=== PATIENT | female | born 1935 | race Caucasian/White ===

== ENCOUNTER 2017-05-21 08:50 | Day surgery (SDC) | payer MEDICARE, BC ==
[~2017-05-21 08:50] MED LIST: Lactated Ringers 1,000 ML IV SCH; cefOXitin 2 GM in Premix Bag 1 BAG IV ONE
--- NOTE | 2017-05-21 09:39 | PCM.PREANE ---
Preanesthetic Assessment - Anesthesia/Transfusion/Family Hx Anesthesia History: Prior Anesthesia Without Reaction Family History of Anesthesia Reaction: No Transfusion History: Prior Transfusion Without Reaction Intubation History: Unknown - Review of Systems General: No Symptoms Pulmonary: No Symptoms Cardiovascular: No Symptoms Gastrointestinal: Abdominal Pain, Diarrhea Neurological: No Symptoms Other: Reports: None - Physical Assessment O2 Sat by Pulse Oximetry: 100 Respiratory Rate: 18 Vital Signs: Last Vital Signs Temp 2.5 C L 05/21/17 09:27 Pulse 62 05/21/17 09:27 Resp 18 05/21/17 09:27 BP 123/75 05/21/17 09:27 Pulse Ox 100 05/21/17 09:27 Height: 1.63 m Weight: 69.4 kg ASA Class: 2 Mental Status: Alert & Oriented x3 Airway Class: Mallampati = 2 Dentition: Reports: Dentures (upper and lower) Thyro-Mental Finger Breadths: 3 Mouth Opening Finger Breadths: 3 ROM/Head Extension: Limited/Partial Lungs: Clear to Auscultation, Normal Respiratory Effort Cardiovascular: Regular Rate, Regular Rhythm - Allergies Allergies/Adverse Reactions: Allergies Allergy/AdvReac Type Severity Reaction Status Date / Time Penicillins Allergy Facial Verified 05/16/17 08:52 Swelling Spwzszh-Rid-Hde Reductase Allergy bloating & Verified 05/16/17 08:52 Inhibitor constipation Sulfa (Sulfonamide Allergy facial Verified 05/16/17 08:36 Antibiotics) numbness - Blood Blood Available: No - Anesthesia Plan Pre-Op Medication Ordered: None - Acknowledgements Anesthesia Type Planned: MAC Pt an Appropriate Candidate for the Planned Anesthesia: Yes Alternatives and Risks of Anesthesia Discussed w Pt/Guardian: Yes Pt/Guardian Understands and Agrees with Anesthesia Plan: Yes PreAnesthesia Questionnaire HEENT History: Reports: Glaucoma, Other (See Below) Other HEENT History: wears reading glasses, top and bottom dentures Gastrointestinal History: Reports: GERD RADIOLOGIST DIAGNOSTIC History: Reports: Musculoskeletal History: Reports: Arthritis Neurological History: Reports: TIA Other Neuro History: "TIA 2 yrs ago in october" Hematologic History: Reports: Blood Transfusion(s) Other Hematologic History: transfusion post vaginal delivery Oncologic (Cancer) History: Reports: Basal Cell Carcinoma - Past Surgical History Head Surgeries/Procedures: Reports: None HEENT Surgical History: Reports: Cataract Surgery GI Surgical History: Reports: Appendectomy, Colonoscopy Female Surgical History: Reports: Hysterectomy, Oophorectomy Musculoskeletal Surgical History: Reports: Knee Replacement (left) Dermatological Surgical History: Reports: Skin Biopsy - SUBSTANCE USE Smoking Status *Q: Former Smoker (quit in 80's) Recreational Drug Use History: No - HOME MEDS Home Medications: Home Meds Aspirin [Dobbins Aspirin] 81 mg PO DAILY 05/16/17 [History] Calcium Carbonate/Simethicone [[place] Heartburn+Gas] 1 tab.chew CHEW ASDIRECTED PRN 05/16/17 [History] Cinnamon Bark [Cinnamon] 1 tab PO BID 05/16/17 [History] Cranberry Conc/Ascorbic Acid [Cranberry Concentrate Softgel] 1 tab PO BID [History] Ibuprofen 2 tab PO ASDIRECTED PRN 05/16/17 [History] Lutein/Minerals/Vit A,C & E [Ocuvite] 1 tab PO DAILY 05/16/17 [History] Multivitamin [Multivitamins] 1 tab PO DAILY 05/16/17 [History] Red Yeast Rice 1 tab PO BID 05/16/17 [History] - CURRENT (IN HOUSE) MEDS Current Meds: Current Medications Lactated Ringer's (Ringers, Lactated) 1,000 mls @ 125 mls/hr IV ASDIRECTED ERICKSON Last Admin: 05/21/17 09:24 Dose: 125 mls/hr Discontinued Medications Cefoxitin Sodium 2 gm/ Premix 50 mls @ 100 mls/hr IV ONETIME ONE Stop: 05/21/17 07:59
[2017-05-21] MEDS ORDERED: Propofol 200 MG/20 ML SDV ONE ×2 (11:11→11:25)
[2017-05-21] MEDS ORDERED: fentaNYL 100 MCG/2 ML SDV ONE (11:25)
[2017-05-21] MEDS ORDERED: ePHEDrine 50 MG/ML SDV ONE (11:55)
--- NOTE | 2017-05-21 12:07 | PCM.OPNOTE ---
- General Post-Op/Procedure Note Date of Surgery/Procedure: 05/21/17 Operative Procedure(s): Esophagogastroduodenoscopy with biopsy. Colonoscopy. Pre Op Diagnosis: Epigastric pain. Change in bowel habits. Post-Op Diagnosis: Gastritis with esophagitis. No evidence of colonic neoplasia. Anesthesia Technique: MAC (ASA II) Primary Surgeon: Mannie Aj Condition: Good Free Text/Narrative:: Dictation [id number] CPT CODE [id number]
[2017-05-21] MEDS ORDERED: Lactated Ringers 1,000 ML IV SCH (12:15)
[2017-05-21 13:00] VITALS: BP 104/60
--- NOTE | 2017-05-21 18:51 | OR ---
SURGEON: Mannie Aj M.D. DATE OF PROCEDURE: 05/21/2017 OPERATION PERFORMED: Esophagogastroduodenoscopy with biopsy. ANESTHESIA: MAC. ASA CLASSIFICATION: II. PREOPERATIVE DIAGNOSIS: Epigastric pain. POSTOPERATIVE DIAGNOSIS: Gastritis. DESCRIPTION OF PROCEDURE: The patient was taken to the endoscopy room, positioned on the endoscopy table in the supine position. Time-out was called for appropriate identification of the patient and the procedure. Monitored anesthesia care was provided. The bite block was placed between the patient's teeth. The gastroscope was inserted through the bite block into the mouth and advanced without difficulty through the esophagus and stomach into the duodenum where examination was carried out in a retrograde fashion. The duodenum shows no acute inflammatory changes or ulcerations. The stomach shows a [id number]-yeseionv gastritis. Antral biopsies were obtained to look for the presence of Helicobacter pylori. The gastroscope was then retroflexed to visualize the proximal stomach. No lesions were identified proximally. Specifically, no ulcers or tumors were seen. The gastroscope was straightened and slowly withdrawn. The patient does have some mild esophagitis at the distal esophagus. Separate biopsies of this area were obtained. The esophagus demonstrated good contractility. No mid or proximal lesions were identified. The vocal cords were identified and noted to move symmetrically. The gastroscope was then removed with the patient having tolerated this portion of the procedure well. Following colonoscopy, she was taken to recovery room in stable condition. KYLIE BORJA /[id number]
--- NOTE | 2017-05-21 18:51 | OR ---
SURGEON: Mannie Aj M.D. DATE OF PROCEDURE: 05/21/2017 OPERATION PERFORMED: Colonoscopy. ANESTHESIA: MAC. ASA CLASSIFICATION: II. PREOPERATIVE DIAGNOSIS: Change in bowel habits. POSTOPERATIVE DIAGNOSIS: No evidence of neoplasia. DESCRIPTION OF PROCEDURE: With the patient having completed esophagogastroduodenoscopy with biopsy, she was now positioned in the left lateral decubitus position. The colonoscope was inserted into the rectum and advanced with minimal difficulty to the cecum, where the colonoscope was retroflexed to visualize the ascending colon from below. The cecum was identified by internal landmarks and external pressure. The cecum, ascending colon, hepatic flexure, transverse colon, splenic flexure, descending colon, sigmoid colon, and rectum showed no tumors, polyps, diverticula, or angiodysplastic changes. Once the colonoscope was withdrawn to the rectum, it was retroflexed to visualize the anal orifice from above. No tumors or polyps were seen and there were no acute hemorrhoidal changes. The colonoscope was then straightened, the rectum aspirated, and the colonoscope removed. The patient tolerated the procedure well and was taken to recovery room in stable condition. KYLIE BORJA /[id number]
== END 2017-05-21 12:40 | disposition home or self-care (01) ==
LOC: MW.SDS 08:50
PROVIDERS: ATTEND Surgery
DX: K29.50 Unspecified chronic gastritis without bleeding (principal); K21.0 Gastro-esophageal reflux disease with esophagitis; M19.90 Unspecified osteoarthritis, unspecified site; Z88.0 Allergy status to penicillin; Z88.2 Allergy status to sulfonamides; Z88.8 Allergy status to other drugs, medicaments and biological substances; Z79.82 Long term (current) use of aspirin; Z79.899 Other long term (current) drug therapy; Z96.652 Presence of left artificial knee joint; Z98.49 Cataract extraction status, unspecified eye; Z90.49 Acquired absence of other specified parts of digestive tract; Z90.710 Acquired absence of both cervix and uterus; Z90.721 Acquired absence of ovaries, unilateral; Z98.890 Other specified postprocedural states; Z87.891 Personal history of nicotine dependence; Z86.73 Personal history of transient ischemic attack (TIA), and cerebral infarction without residual deficits; Z85.828 Personal history of other malignant neoplasm of skin
CPT/HCPCS: 43239; 45378; J3010; J7120; 00740; 88305; 88312; J2704